=== PATIENT | female | born 1960 | race Two or more races ===

== ENCOUNTER 2018-09-15 20:21 | Emergency (ER) | payer OTHER ==
[~2018-09-15] VITALS: Ht 160 cm; Wt 52.2 kg
[~2018-09-15 20:21] MED LIST: AMOX1TAB12 PO; DESPEC-DM TABL1 EACH PO; NABUMETONE750 MG; NORFLEX30 MG/ML; PEPCID40 MG PO; PREVACID30 MG; ZOFRAN4 MG PO; ZOLOFT25 MG
== END 2018-09-15 22:45 | disposition home or self-care (01) ==
LOC: ER 20:21
DX: S01.81XA Laceration without foreign body of other part of head, initial encounter (principal); S00.83XA Contusion of other part of head, initial encounter; W18.39XA Other fall on same level, initial encounter; Y93.89 Activity, other specified; Y92.89 Other specified places as the place of occurrence of the external cause; Y99.8 Other external cause status

== ENCOUNTER 2021-12-06 11:50 | Emergency (ER) | payer OTHER ==
[~2021-12-06] VITALS: Ht 160 cm; Wt 52.6 kg
== END 2021-12-06 16:14 | disposition home or self-care (01) ==
LOC: ER 11:50
DX: N20.0 Calculus of kidney (principal); R10.11 Right upper quadrant pain; N39.0 Urinary tract infection, site not specified; Z88.6 Allergy status to analgesic agent; Z88.5 Allergy status to narcotic agent

== ENCOUNTER → 2021-12-18 | Emergency (ER) | payer OTHER ==
[~2021-12-18] VITALS: Ht 160 cm; Wt 53.5 kg
[~2021-12-18] MED LIST changes: +ZOLOFT50 MG PO
== END | disposition home or self-care (01) ==
LOC: ER 08:40
DX: F41.9 Anxiety disorder, unspecified (principal); R11.10 Vomiting, unspecified

== ENCOUNTER 2022-06-07 11:58 | Emergency (ER) | payer OTHER ==
[~2022-06-07] VITALS: Ht 157.5 cm; Wt 53.5 kg
== END 2022-06-07 21:45 | disposition home or self-care (01) ==
LOC: ER 11:58
DX: K52.9 Noninfective gastroenteritis and colitis, unspecified (principal); Z20.822 Contact with and (suspected) exposure to COVID-19; I10 Essential (primary) hypertension; Z88.8 Allergy status to other drugs, medicaments and biological substances

== ENCOUNTER 2023-10-19 10:45 | Emergency (ER) | payer OTHER ==
[~2023-10-19] VITALS: Ht 160 cm; Wt 54.4 kg
[2023-10-19] MEDS ORDERED: TERBINAFINE HC250 MG (11:14)
[2023-10-19] MEDS ORDERED: CLINDAMYCIN HC300 MG PO (11:14)
[2023-10-19 12:46] LABS: HEMATOCRIT 41.4 % (36.0-45.00); HEMOGLOBIN 14.2 g/dL (12.0-15.00); MEAN CELL VOLUME 94.7 fL (80.00-100.00); MEAN CORPUSCULAR HEMOGLOBIN 32.4 pg (27.00-32.0); MEAN CORPUSCULAR HGB CONC 34.2 g/dl (32.0-36.0); PLATELET COUNT 206 K/uL (150-450); RED BLOOD COUNT 4.37 M/uL (4.00-6.00); RED CELL DISTRIBUTION WIDTH 13.7 % (11.5-14.5)
[2023-10-19 12:48] LABS: URINE APPEARANCE Cloudy; URINE BILIRRUBIN Negative (NEGATIVE); URINE BLOOD Negative; URINE COLOR Yellow; URINE EPITHELIAL CELLS 4.1 uL (0.0-38.8); URINE GLUCOSE Negative (NEGATIVE); URINE LEUKOCYTE Negative; URINE NITRATE Negative; URINE PROTEIN Negative (NEGATIVE); URINE RBC 30.6 uL (0.0-20.8); URINE UROBILINOGEN 0.2 E.U./dl; URINE WBC 3.8 uL (0.0-23.2)
[2023-10-19 13:19] LABS: CALCIUM 9.5 mg/dL (8.5-10.1); CREATININE SERUM 0.7 mg/dL (0.55-1.02); GFR 84.24; POTASSIUM 3.9 mEq/L (3.5-5.1)
[2023-10-19 13:39] LABS: URINE BACTERIA 2.5 uL (0.0-1933)
== END 2023-10-19 15:26 | disposition home or self-care (01) ==
LOC: ER 10:45
PROVIDERS: General Practice
DX: R10.84 Generalized abdominal pain (principal); Z88.8 Allergy status to other drugs, medicaments and biological substances

== ENCOUNTER 2024-04-02 16:14 | Emergency (ER) | payer OTHER ==
[~2024-04-02] VITALS: Ht 157.5 cm; Wt 54.4 kg
[~2024-04-02 16:14] MED LIST changes: +CLINDAMYCIN HC300 MG PO; +TERBINAFINE HC250 MG
[2024-04-02 17:28] LABS: HEMATOCRIT 40.4 % (36.0-45.00); HEMOGLOBIN 13.8 g/dL (12.0-15.00); MEAN CELL VOLUME 96.1 fL (80.00-100.00); MEAN CORPUSCULAR HEMOGLOBIN 32.9 pg (27.00-32.0); MEAN CORPUSCULAR HGB CONC 34.2 g/dl (32.0-36.0); PLATELET COUNT 147 K/uL (150-450); RED CELL DISTRIBUTION WIDTH 13.2 % (11.5-14.5)
== END 2024-04-02 19:14 | disposition home or self-care (01) ==
LOC: ER 16:15
PROVIDERS: General Practice
DX: U07.1 COVID-19 (principal); Z88.8 Allergy status to other drugs, medicaments and biological substances

== ENCOUNTER 2024-04-27 10:41 | Emergency (ER) | payer OTHER ==
[~2024-04-27] VITALS: Ht 160 cm; Wt 55.3 kg
[2024-04-27] MEDS ORDERED: LANSOPRAZOLE30 MG PO (10:58)
[2024-04-27 12:59] LABS: HEMATOCRIT 42.7 % (36.0-45.00); HEMOGLOBIN 14.5 g/dL (12.0-15.00); MEAN CELL VOLUME 94.5 fL (80.00-100.00); MEAN CORPUSCULAR HEMOGLOBIN 32.2 pg (27.00-32.0); MEAN CORPUSCULAR HGB CONC 34.1 g/dl (32.0-36.0); PLATELET COUNT 183 K/uL (150-450); RED BLOOD COUNT 4.51 M/uL (4.00-6.00); RED CELL DISTRIBUTION WIDTH 13.7 % (11.5-14.5)
[2024-04-27 13:12] LABS: URINE APPEARANCE Clear; URINE BILIRRUBIN Negative (NEGATIVE); URINE BLOOD Large; URINE COLOR Yellow; URINE GLUCOSE Negative (NEGATIVE); URINE LEUKOCYTE Moderate; URINE NITRATE Negative; URINE PROTEIN Negative (NEGATIVE); URINE UROBILINOGEN 0.2 E.U./dl
[2024-04-27 13:13] LABS: URINE BACTERIA 1180.3 uL (0.0-1933); URINE RBC 81.2 uL (0.0-20.8); URINE WBC 586.2 uL (0.0-23.2)
[2024-04-27 13:35] LABS: CALCIUM 9.3 mg/dL (8.5-10.1); CREATININE SERUM 0.6 mg/dL (0.55-1.02); GFR 100.64; POTASSIUM 4.73 mEq/L (3.5-5.1)
[2024-04-27] MEDS ORDERED: CEFTRIAXONE SODIUM 1,000 MG VIAL IV STA (13:37)
[2024-04-27] MEDS ORDERED: CEFTRIAXONE SODIUM 1,000 MG VIAL ONE (13:46)
== END 2024-04-27 14:47 | disposition home or self-care (01) ==
LOC: ER 10:42
PROVIDERS: General Practice
DX: N39.0 Urinary tract infection, site not specified (principal)

== ENCOUNTER 2024-11-25 10:19 | Inpatient (IN) | payer OTHER ==
[~2024-11-25] VITALS: Ht 157.5 cm; Wt 55.3 kg
[~2024-11-25 10:19] MED LIST changes: +LANSOPRAZOLE30 MG PO
[2024-11-25] MEDS ORDERED: COZAAR25 MG (10:46)
--- NOTE | 2024-11-25 10:49 | NUR ---
PTE ALERTA Y ORIENTADA X3 REFIERE DOLOR ABDOMINAL. SE MIDNE S/V Y SE UBICA.
[2024-11-25] MEDS ORDERED: FAMOTIDINE/PF 20 MG/2 ML VIAL IV PUSH STA (11:30)
[2024-11-25] MEDS ORDERED: 0.9 % SODIUM CHLORIDE 1,000 ML IV STA (11:31)
[2024-11-25] MEDS ORDERED: FAMOTIDINE/PF 20 MG/2 ML VIAL ONE ×2 (11:35→19:01)
--- NOTE | 2024-11-25 11:52 | NUR ---
PTE ALERTA,ESTABLE Y ORIENTADA.SE LE ADMINISTRA MEDICAMENTO MARY ORDEN MEDICA. SE LE GABY MUESTRAS DE REESE
[2024-11-25 12:01] LABS: URINE APPEARANCE Clear; URINE BILIRRUBIN Negative (NEGATIVE); URINE BLOOD Negative; URINE COLOR Yellow; URINE GLUCOSE Negative (NEGATIVE); URINE KETONE Negative (NEGATIVE); URINE LEUKOCYTE Trace; URINE NITRATE Negative; URINE PROTEIN Negative (NEGATIVE); URINE UROBILINOGEN 0.2 E.U./dl
[2024-11-25 12:05] LABS: URINE BACTERIA 9.7 uL (0.0-1933); URINE EPITHELIAL CELLS 5.5 uL (0.0-38.8); URINE RBC 39.1 uL (0.0-20.8); URINE WBC 2.2 uL (0.0-23.2)
[2024-11-25 12:18] LABS: URINE CAST 0.29 uL (0.0-1.40)
[2024-11-25 13:46] LABS: AMYLASE 58 U/L (25-115); LIPASE 48 U/L (13-75)
[2024-11-25 14:02] LABS: HEMATOCRIT 42.5 % (36.0-45.00); HEMOGLOBIN 14.3 g/dL (12.0-15.00); MEAN CELL VOLUME 97.5 fL (80.00-100.00); MEAN CORPUSCULAR HEMOGLOBIN 32.7 pg (27.00-32.0); MEAN CORPUSCULAR HGB CONC 33.6 g/dl (32.0-36.0); PLATELET COUNT 186 K/uL (150-450); RED BLOOD COUNT 4.37 M/uL (4.00-6.00); RED CELL DISTRIBUTION WIDTH 13.5 % (11.5-14.5)
[2024-11-25] MEDS ORDERED: FAMOTIDINE/PF 20 MG in 0.9 % SODIUM CHLORIDE 8 ML IV PUSH SCH (17:59)
[2024-11-25] MEDS ORDERED: 0.9 % SODIUM CHLORIDE 1,000 ML IV SCH (18:00)
[2024-11-25] MEDS ORDERED: MORPHINE SULFATE 2 MG/ML CARTRIDGE IV PRN (18:00)
[2024-11-25] MEDS ORDERED: LOSARTAN POTASSIUM 50 MG TABLET PO SCH (18:09)
[2024-11-25] MEDS ORDERED: SERTRALINE HCL 50 MG TABLET PO SCH (18:21)
[2024-11-25] MEDS ORDERED: METRONIDAZOLE/SODIUM CHLORIDE 100 ML IV SCH (18:29)
[2024-11-25] MEDS ORDERED: CIPROFLOXACIN IN 5 % DEXTROSE 200 ML IV SCH (18:29)
[2024-11-25] MEDS ORDERED: CIPROFLOXACIN IN 5 % DEXTROSE 400 MG/200 ML PIGGYBAG IV ONE (19:01)
[2024-11-25] MEDS ORDERED: METRONIDAZOLE/SODIUM CHLORIDE 500 MG/100 ML PIGGYBACK IV ONE (19:01)
[2024-11-25 19:32] LABS: INR 0.95; PARTIAL THROMBOPLASTIN TIME 27.8 SECONDS (22.0-34.0); PROTHROMBIN TIME 10.4 SECONDS (9.0-11.5)
[2024-11-25] MEDS ORDERED: PIPERACILLIN/TAZOBACTAM SODIUM 3.375 GM VIAL IV SCH (19:38)
[2024-11-25 20:01] LABS: ALBUMIN 4.1 gm/dL (3.4-5.0); ALKALINE PHOSPHATASE 134 U/L (50-136); ALT/SGPT 25 U/L (12-78); ANION GAP 8 (10.0-20.0); AST/SGOT 15 U/L (15-37); BILIRUBIN TOTAL 0.35 mg/dL (0.3-1.2); BILIRUBIN,CONJUGATED < 0.10 mg/dL (0.0-0.2); BILIRUBIN,UNCONJUGATED 0.25 mg/dL (0.0-0.6); BLOOD UREA NITROGEN 13 mg/dL (7-18); BUN CREA RATIO 22 (7.0-25.0); CARBON DIOXIDE 28 mEq/L (21-32); CHLORIDE 109 mmol/L (98-107); GFR 100.33; GLOBULINA 3.3 G/DL (2.4-3.5); GLUCOSE FASTING 99 mg/dL (65-100); OSMOLALITY SERUM 281 MOSM/KG (275-295); POTASSIUM 4.18 mEq/L (3.5-5.1); SODIUM 141 mmol/L (136-145); TOTAL PROTEIN 7.4 gm/dL (6.4-8.2)
[2024-11-25] MEDS ORDERED: PIPERACILLIN/TAZOBACTAM SODIUM 3.375 GM VIAL IV ONE (20:31)
[2024-11-25 21:47] VITALS: BP 129/65; O2SAT 97
[2024-11-26] VITALS: BP 121/68; O2SAT 96
[2024-11-26 08:55] VITALS: BP 103/52; O2SAT 97
[2024-11-26] MEDS ORDERED: ATORVASTATIN CALCIUM 20 MG TABLET PO SCH (09:00)
[2024-11-26] MEDS ORDERED: PANTOPRAZOLE SODIUM 40 MG/VIAL VIAL IV SCH (09:00)
[2024-11-26 16:29] VITALS: BP 129/79; O2SAT 98
[2024-11-27 00:31] VITALS: BP 113/61; O2SAT 97
[2024-11-27 08:00] VITALS: BP 94/50; O2SAT 97
[2024-11-27] MEDS ORDERED: ENOXAPARIN SODIUM 40 MG/0.4 ML SYRINGE SUBCUTANEO SCH (09:25)
[2024-11-27] MEDS ORDERED: METOCLOPRAMIDE HCL 10 MG TABLET PO SCH (11:00)
[2024-11-27] MEDS ORDERED: KETOROLAC TROMETHAMINE 30 MG VIAL IV SCH (12:00)
[2024-11-27 17:50] VITALS: BP 111/62; O2SAT 96
[2024-11-27] MEDS ORDERED: LORazepam 2 MG/ML VIAL IV SCH (21:00)
[2024-11-28 00:58] VITALS: BP 107/56; O2SAT 100
[2024-11-28 08:00] VITALS: BP 93/46; O2SAT 98
[2024-11-28 08:00] LABS: ALBUMIN 3.5 gm/dL (3.4-5.0); BILIRUBIN TOTAL 0.56 mg/dL (0.3-1.2); CALCIUM 8.4 mg/dL (8.5-10.1); CREATININE SERUM 0.69 mg/dL (0.55-1.02); GFR 85.38; GLOBULINA 2.7 G/DL (2.4-3.5); POTASSIUM 4.15 mEq/L (3.5-5.1); TOTAL PROTEIN 6.2 gm/dL (6.4-8.2)
[2024-11-28 12:00] VITALS: BP 93/51; O2SAT 100
[2024-11-28 17:00] VITALS: BP 122/54; O2SAT 100
[2024-11-28] MEDS ORDERED: CEFAZOLIN SODIUM 1,000 MG VIAL ONE (19:44)
[2024-11-28] MEDS ORDERED: MORPHINE SULFATE 4 MG/ML VIAL IV PRN (20:15)
[2024-11-28] MEDS ORDERED: ONDANSETRON HCL 2 MG/ML VIAL IV PRN (20:15)
[2024-11-29] MEDS ORDERED: ACETAMINOPHEN 500 MG GEL..CAP PO SCH
[2024-11-29] MEDS ORDERED: ACETAMINOPHEN 500 MG GEL..CAP PO ONE (00:08)
[2024-11-29 01:00] VITALS: BP 138/63; O2SAT 100
[2024-11-29] MEDS ORDERED: GABAPENTIN 300 MG CAPSULE PO SCH (01:00)
[2024-11-29] MEDS ORDERED: MORPHINE SULFATE 4 MG/ML CARTRIDGE IV PRN (07:30)
[2024-11-29 08:12] VITALS: BP 126/50; O2SAT 96
[2024-11-29 09:51] LABS: ALBUMIN 3.4 gm/dL (3.4-5.0); BILIRUBIN TOTAL 0.53 mg/dL (0.3-1.2); CALCIUM 8.4 mg/dL (8.5-10.1); CREATININE SERUM 0.61 mg/dL (0.55-1.02); GFR 98.43; POTASSIUM 4.03 mEq/L (3.5-5.1); TOTAL PROTEIN 6.4 gm/dL (6.4-8.2)
== END 2024-11-29 14:44 | disposition home or self-care (01) | DRG 418 ==
LOC: ER 10:22 → SURH 18:10
PROVIDERS: Emergency Medicine; General Practice; Student in an Organized Health Care Education/Training Program; ADMIT Internal Medicine; ATTEND Internal Medicine
PROC: BW40ZZZ Ultrasonography of Abdomen (ICD-10-PCS; 2024-11-25)
PROC: BW21YZZ Computerized Tomography (CT Scan) of Abdomen and Pelvis using Other Contrast (ICD-10-PCS; 2024-11-26)
PROC: BF53200 Other Imaging of Gallbladder and Bile Ducts using Fluorescing Agent, Indocyanine Green Dye, Intraoperative (ICD-10-PCS; 2024-11-28)
PROC: 0F7 Hepatobiliary System and Pancreas, Dilation (ICD-10-PCS; 2024-11-28)
PROC: 0FT44ZZ Resection of Gallbladder, Percutaneous Endoscopic Approach (ICD-10-PCS; principal; 2024-11-28 19:00)
DX: K81.1 Chronic cholecystitis (principal); K90.49 Malabsorption due to intolerance, not elsewhere classified; I10 Essential (primary) hypertension; I48.91 Unspecified atrial fibrillation

== ENCOUNTER 2025-03-23 11:04 | Emergency (ER) | payer OTHER ==
[~2025-03-23] VITALS: Ht 157.5 cm; Wt 58.1 kg
[~2025-03-23 11:04] MED LIST changes: +COZAAR25 MG
[2025-03-23] MEDS ORDERED: ORPHENADRINE CITRATE 30 MG/ML AMPUL IM ONE (14:30)
[2025-03-23] MEDS ORDERED: KETOROLAC TROMETHAMINE 60 MG VIAL IM ONE ×2 (14:30→14:38)
[2025-03-23] MEDS ORDERED: ORPHENADRINE CITRATE 30 MG/ML AMPUL ONE (14:38)
[2025-03-23 15:30] LABS: BASO % 0.3 % (0.1-1.2); EOS # 0.09 (0.04-0.54); EOS % 1.6 % (0.7-7.0); HEMATOCRIT 41.9 % (34.1-44.9); HEMOGLOBIN 14.2 g/dL (11.2-15.7); LYMPH # 1.69 (1.18-3.74); LYMPH % 29.3 % (19.3-53.1); MEAN CORPUSCULAR HEMOGLOBIN 32.1 pg (25.6-32.2); MONO # 0.48 (0.24-0.82); MONO % 8.3 % (4.7-12.5); NEUT # 3.47 (1.56-6.13); NEUT % 60.3 % (34.0-71.1); PLATELET COUNT 196 K/uL (163-369); RED BLOOD COUNT 4.43 M/uL (3.93-5.22); RED CELL DISTRIBUTION WIDTH 12.7 % (11.6-14.4)
[2025-03-23 15:33] LABS: URINE APPEARANCE Clear; URINE BILIRRUBIN Negative (NEGATIVE); URINE BLOOD Negative; URINE COLOR Yellow; URINE GLUCOSE Negative (NEGATIVE); URINE KETONE Negative (NEGATIVE); URINE LEUKOCYTE Negative; URINE NITRATE Negative; URINE PROTEIN Negative (NEGATIVE); URINE UROBILINOGEN 0.2 E.U./dl
[2025-03-23 15:37] LABS: URINE BACTERIA 411.2 uL (0.0-1933); URINE EPITHELIAL CELLS 33.9 uL (0.0-38.8); URINE RBC 44.3 uL (0.0-20.8); URINE WBC 6.1 uL (0.0-23.2)
[2025-03-23 15:56] LABS: TYPE CELLS SQUAMOUS; URINE CAST 0.14 uL (0.0-1.40)
[2025-03-23 16:03] LABS: ALBUMIN 4.1 gm/dL (3.4-5.0); BILIRUBIN TOTAL 0.31 mg/dL (0.3-1.2); CALCIUM 9.2 mg/dL (8.5-10.1); CREATININE SERUM 0.8 mg/dL (0.55-1.02); GFR 71.99; GLOBULINA 3.3 G/DL (2.4-3.5); POTASSIUM 4.55 mEq/L (3.5-5.1); TOTAL PROTEIN 7.4 gm/dL (6.4-8.2)
== END 2025-03-23 17:54 | disposition home or self-care (01) ==
LOC: ER 11:11
PROVIDERS: General Practice
DX: R10.11 Right upper quadrant pain (principal); E78.00 Pure hypercholesterolemia, unspecified; I49.8 Other specified cardiac arrhythmias; M81.8 Other osteoporosis without current pathological fracture; E78.49 Other hyperlipidemia
CPT/HCPCS: 36415; 71110; 96372; 99283; J1885; J2360